=== PATIENT | male | born 1980 | race Caucasian/White ===

== ENCOUNTER 2016-06-23 05:48 | Emergency (ER) | payer SELFPAY ==
[~2016-06-23] VITALS: Ht 182.9 cm; Wt 77.3 kg
[2016-06-23 05:50] VITALS: TEMP 98.2
[2016-06-23] MEDS ORDERED: WELLBUTRIN 100100 MG PO (05:56)
[2016-06-23] MEDS ORDERED: IMITREX100 MG PO (05:56)
[2016-06-23] MEDS ORDERED: ANUSOL HC CREAM30 GM TP (06:50)
[2016-06-23 07:02] VITALS: BP 127/77; PULSE 85
== END 2016-06-23 07:02 | disposition home or self-care (01) ==
LOC: COL.ER 05:48
DX: K60.2 Anal fissure, unspecified (principal)